=== PATIENT | female | born 1990 | race African-American/Black ===

== ENCOUNTER 2017-11-29 12:03 | Emergency (ER) | payer SELFPAY, OTHER ==
[2017-11-29] MEDS: CEFTRIAXONE 250 MG INJ IM (15:20)
[2017-11-29] MEDS: AZITHROMYCIN 250 MG TAB PO (15:20)
[2017-11-29 15:43] LABS: ADD UMIC YES; UR ASCORBIC ACID 40 mg/dL (NEGATIVE); UR BILIRUBIN (Dip) NEGATIVE (NEGATIVE); UR BLOOD (Dip) NEGATIVE (NEGATIVE); UR CLARITY CLEAR (CLEAR); UR COLOR YELLOW (YELLOW); UR GLUCOSE (Dip) NEGATIVE (NEGATIVE); UR KETONES (Dip) NEGATIVE (NEGATIVE); UR LEUKOCYTE ESTERASE (Dip) NEGATIVE Leu/ul (NEGATIVE); UR MUCUS FEW /HPF (NONE SEEN); UR NITRITE (Dip) NEGATIVE (NEGATIVE); UR RBC 0 /HPF (0-5); UR SPECIFIC GRAVITY (Dip) 1.026 (1.003-1.030); UR TOTAL PROTEIN (Dip) 1+ mg/dl (NEGATIVE); UR UROBILINOGEN (Dip) NEGATIVE (NEGATIVE); UR WBC 0 /HPF (0-5)
== END 2017-11-29 17:01 | disposition home or self-care (01) ==
LOC: FTE 12:03
DX: A64 Unspecified sexually transmitted disease (principal); M54.6 Pain in thoracic spine; M54.5 Low back pain; G89.29 Other chronic pain
CPT/HCPCS: 81001; 87591; 96372; 99284-25

== ENCOUNTER 2018-04-27 13:54 | Emergency (ER) | payer OTHER ==
[2018-04-27] MEDS: IBUPROFEN 600 MG TAB PO (15:04)
== END 2018-04-27 16:23 | disposition left against medical advice (07) ==
LOC: FTE 13:54
DX: M79.89 Other specified soft tissue disorders (principal); Z87.891 Personal history of nicotine dependence
CPT/HCPCS: 99282; Z7610